=== PATIENT | male | born 1965 | race Caucasian/White ===

== ENCOUNTER 2017-05-08 07:56 | Day surgery (SDC) | payer BC ==
[2017-05-06 15:54] VITALS: BMI 27.8
[~2017-05-08 07:56] MED LIST: LACTATED RINGERS 1,000 ML IV SCH
[2017-05-08 08:24] VITALS: TEMP 97.8
[2017-05-08] MEDS ORDERED: LACTATED RINGERS 1,000 ML IV ONE (08:24)
[2017-05-08] MEDS ORDERED: LIDOCAINE 1% 20 ML VIAL (10MG/ML) FOR IV START INTRADERMA ONE (08:25)
--- NOTE | 2017-05-08 09:22 | P.GSHP ---
History of Present Illness H&P Date: 05/08/17 Chief Complaint: Screening colonoscopy This is a 51-year-old male who is referred from Dr. Sarabia. Patient rents today for screening colonoscopy. Significant GI complaints. Past Medical History Past Medical History: Pulmonary Embolus (PE), Thyroid Disorder History of Any Multi-Drug Resistant Organisms: None Reported Past Surgical History: No Surgical Hx Reported Past Anesthesia/Blood Transfusion Reactions: No Reported Reaction Additional Past Anesthesia/Blood Transfusion Reaction / Comment(s): NO PRIOR SX HX Smoking Status: Current every day smoker - Past Family History Father Family Medical History: Cancer Medications and Allergies Home Medications Medication Instructions Recorded Confirmed Type Aspirin EC [Ecotrin Low Dose] 81 mg PO DAILY 05/06/17 05/06/17 History Levothyroxine Sodium [Synthroid] 100 mcg PO DAILY 05/06/17 05/06/17 History Tadalafil [Cialis] 5 mg PO DAILY 05/06/17 05/06/17 History Allergies Allergy/AdvReac Type Severity Reaction Status Date / Time No Known Allergies Allergy Verified 05/06/17 15:47 Surgical - Exam Vital Signs Temp Pulse Resp BP Pulse Ox 97.8 F 76 18 136/83 94 L 05/08/17 08:23 05/08/17 08:23 05/08/17 08:23 05/08/17 08:23 05/08/17 08:23 - General well developed, no distress - Eyes PERRL - ENT normal pinna - Neck no masses - Respiratory normal expansion - Cardiovascular Rhythm: regular - Abdomen Abdomen: soft, non tender Assessment and Plan Plan: We'll perform screening colonoscopy.
[2017-05-08] MEDS ORDERED: LIDOCAINE 1% INJ 10MG/ML (20 ML MDV) ONE (10:26)
[2017-05-08] MEDS ORDERED: PROPOFOL 10 MG/ML 20 ML VIAL IV ONE (10:26)
--- NOTE | 2017-05-08 10:47 | P.OP ---
Date of Procedure: 05/08/17 Preoperative Diagnosis: Colonoscopy Postoperative Diagnosis: Colon polyps Procedure(s) Performed: Colonoscopy Anesthesia: MAC Surgeon: Aidan Tran Pathology: other (Rectal polyp, right colon polyp) Condition: stable Disposition: PACU Description of Procedure: Patient's placed on the endoscopy table lateral position. He received IV sedation. Digital rectal exam was performed which revealed no abnormalities. The flexible colonoscope was then placed patient anus passed throughout the entire colon. The ileocecal valve was visualized. The cecum appeared normal in the right colon there was a polyp seen 0 the snare. Scope was then brought back and the remainder of the ascending colon, transverse colon and descending colon appeared normal. The sigmoid colon had a few diverticula. The scope was then brought back the rectum and another large clots the polyp was seen. This remove the snare. There is no other sessile polyp removed the forcep. The scope was withdrawn for patient.
[2017-05-08 11:15] VITALS: PULSE 72
[2017-05-08 11:16] VITALS: BP 117/81; RESP 18
== END 2017-05-08 11:40 | disposition home or self-care (01) ==
LOC: ORWHC2ENDO 07:56
PROVIDERS: ATTEND Surgery
DX: Z12.11 Encounter for screening for malignant neoplasm of colon (principal); D12.2 Benign neoplasm of ascending colon; D12.8 Benign neoplasm of rectum; K62.1 Rectal polyp; K57.30 Diverticulosis of large intestine without perforation or abscess without bleeding; F17.200 Nicotine dependence, unspecified, uncomplicated; E07.9 Disorder of thyroid, unspecified; Z86.711 Personal history of pulmonary embolism; Z79.82 Long term (current) use of aspirin; Z79.899 Other long term (current) drug therapy
CPT/HCPCS: 88305; 45385; J2001; J2704; 45380